=== PATIENT | male | born 1990 | race Caucasian/White ===

== ENCOUNTER 2019-03-17 16:29 | Emergency (ER) | payer SELFPAY ==
--- NOTE | 2019-03-17 16:45 | ED Physician Documentation ---
Nausea/Vomiting/Diarrhea - HISTORIAN Historian: patient - HPI Chief Complaint: Nausea,Vomiting,Diarrhea (N/V) Onset: days ago Duration: none Timing: gradual onset Context: bad food (took a bite from mushroom in the yard) Severity: mild - Associated Symptoms Vomiting: mild, bilious Abdominal Pain: aching, mild - ROS CONST: none CVS/RESP: denies: shortness of breath GI/: none EYES/ENT: none MS/SKIN/LYMPH: denies: rash NEURO/PSYCH: none - PAST HX Past History: other (depression) Surgeries/Procedures: none Immunizations: UTD Allergies/Adverse Reactions: Allergies Allergy/AdvReac Type Severity Reaction Status Date / Time No Known Allergies Allergy Unverified 03/17/19 16:59 Home Medications: Ambulatory Orders Medication Instructions Recorded Fluoxetine HCl [Prozac] 20 mg PO QDAY 03/17/19 Ondansetron HCl Rapdis [Zofran Odt] 4 mg PO Q8 PRN #10 tab 03/17/19 - SOCIAL HX Smoking History: greater than 1 pack/day Alcohol Use: occasionally Drug Use: marijuana - FAMILY HX Family History: none - VITAL SIGNS Vital Signs: Vital Signs Temp Pulse Resp BP Pulse Ox 98.2 F 117 H 16 118/71 98 03/17/19 16:29 03/17/19 16:29 03/17/19 16:29 03/17/19 16:29 03/17/19 16:29 - REVIEWED ASSESSMENTS Nursing Assessment Reviewed: Yes Vitals Reviewed: Yes ED Results Lab/Radiology - Lab Results Lab Results: Lab Results 03/17/19 03/17/19 16:41 16:41 WBC 5.60 K/ul K/ul (4.00-12.00) RBC 5.43 M/ul H M/ul (3.90-5.20) Hgb 15.6 g/dL g/dL (12.0-18.0) Hct 45.9 % % (37.0-53.0) MCV 85.0 fl fl (80.0-100.0) MCH 28.7 pg pg (28.0-34.0) MCHC 33.9 g/dL g/dL (30.0-36.0) RDW 13.9 % % (11.3-14.3) Plt Count 182 K/mm3 K/mm3 (130-400) Neut % (Auto) 77.0 % % (39.0-79.0) Lymph % (Auto) 16.0 % % (16.0-50.0) [place] % (Auto) 5.2 % % (0.0-11.0) Eos % (Auto) 1.5 % % (0.0-6.8) Baso % (Auto) 0.3 % % (0.0-1.5) Neut # (Auto) 4.3 # k/uL # k/uL (1.4-7.7) Lymph # (Auto) 0.9 # k/uL # k/uL (0.6-4.0) [place] # (Auto) 0.3 # k/uL # k/uL (0.0-0.9) Eos # (Auto) 0.1 # k/uL # k/uL (0.0-0.6) Baso # (Auto) 0.0 # k/uL # k/uL (0.0-0.5) Sodium 140 mmol/L mmol/L (137-145) Potassium 3.7 mmol/L mmol/L (3.5-5.1) Chloride 103 mmol/L mmol/L (98-107) Carbon Dioxide 26 mmol/L mmol/L (22-30) Anion Gap 14.7 BUN 14 mg/dL mg/dL (9-20) Creatinine 0.81 mg/dL mg/dL (0.66-1.25) Estimated Creat Clear 143 Est GFR ( Amer) > 60 (60 - ) Est GFR (Non-Af Amer) > 60 (60 - ) Glucose 118 mg/dL H mg/dL (74-106) Calcium 8.8 mg/dL mg/dL (8.4-10.2) Total Bilirubin 1.2 mg/dL mg/dL (0.2-1.3) AST 71 U/L H U/L (15-46) ALT 71 U/L H U/L (13-69) Alkaline Phosphatase 74 U/L U/L (38-126) Total Protein 7.7 g/dL g/dL (6.3-8.2) Albumin 4.1 g/dL g/dL (3.5-5.0) - Orders Orders: ED Orders Category Date Time Status CBC/PLATELET/DIFF Routine Lab 03/17/19 16:41 Completed CMP Routine Lab 03/17/19 16:41 Completed 0.9 % Sodium Chloride [Normal Saline] 1,000 ml Med 03/17/19 16:41 Discontinued IV Q1H Ondansetron HCl/Pf [Zofran] Med 03/17/19 16:53 Discontinued 4 mg IVP NOW ONE Nausea Physical Exam - EXAM General Appearance: no acute distress, alert EENT: eye inspection normal, ENT inspection normal, pharynx normal, no signs of dehydration, [place] Neck: normal inspection, supple Respiratory: breath sounds normal CVS: heart sounds normal, equal pulses Abdomen: non-tender Back: non-tender Skin: warm/dry, normal color Extremities: non-tender, normal range of motion, no evidence of injury Neuro/Psych: oriented X3, CN's nml as tested, motor nml, sensation nml, mood/affect nml, cognition normal (drowsy) Discharge Clincal Impression: Nausea & vomiting Prescriptions: Ondansetron HCl Rapdis [Zofran Odt] 4 mg PO Q8 PRN #10 tab PRN Reason: Nausea / Vomiting Additional Instructions: Take Zofran 4 mg by mouth every 6 hours as needed for nausea and vomiting Start with clear liquids for 24 hours and advance diet as tolerated; no greasy, spicy or fried foods Follow up with PCP next week as needed Condition: Good Disposition: 01 HOME, SELF-CARE Decision to Admit: NO Decision Time: 18:00
[2019-03-17 16:57] LABS: BASOPHILS % 0.3 % (0.0-1.5); NEUTROPHILS # 4.3 # k/uL (1.4-7.7)
[2019-03-17] MEDS: 0.9 % SODIUM CHLORIDE 1,000 ML IV ONE (17:00)
[2019-03-17] MEDS: ONDANSETRON HCL/PF 4 MG/ 2ML VIAL IVP ONE (17:00)
[2019-03-17 17:06] LABS: eGFR (Non-African) > 60
[2019-03-17 18:10] VITALS: BP 109/70
== END 2019-03-17 18:08 | disposition home or self-care (01) ==
LOC: ED 16:29
DX: R11.2 Nausea with vomiting, unspecified (principal)
CPT/HCPCS: 80053; 85025; 96360; 96374; 99283; 99284; J2405; J7030